=== PATIENT | male | born 1995 | race Caucasian/White ===

== ENCOUNTER 2021-12-05 15:21 | Emergency (ER) | payer SELFPAY ==
[~2021-12-05] VITALS: Ht 177.8 cm; Wt 83.2 kg
[2021-12-05 15:22] VITALS: BP 131/71
[2021-12-05] MEDS ORDERED: ONDA4TAB6 PO (15:43)
== END 2021-12-05 18:10 | disposition left against medical advice (07) ==
LOC: M ED 15:21
DX: Z53.21 Procedure and treatment not carried out due to patient leaving prior to being seen by health care provider (principal)